=== PATIENT | female | born 1970 | race Caucasian/White ===

== ENCOUNTER 2017-04-09 13:19 | Emergency (ER) | payer OTHER ==
[2017-04-09] MEDS ORDERED: OXYCODONE/APAP 5/325 TAB PO ONE (14:12)
--- NOTE | 2017-04-09 14:12 | EDPHY ---
H & P Stated Complaint: TRIPPED AND FELL ONTO RIGHT WRIST Source: Patient Exam Limitations: No limitations - Personal History LMP (Females 10-55): 1-7 Days Ago Current Tetanus/Diphtheria Vaccine: Yes Current Tetanus Diphtheria and Acellular Pertussis (TDAP): Yes - Medical/Surgical History Hx Asthma: No Hx Chronic Respiratory Disease: No Hx Diabetes: No Hx Cardiac Disease: No Hx Renal Disease: No Hx Cirrhosis: No Hx Alcoholism: No Hx HIV/AIDS: No Hx Splenectomy or Spleen Trauma: No Other PMH: DENIES - Social History Smoking Status: Never smoked HPI/ROS: CHIEF COMPLAINT: fall, wrist pain HISTORY OF PRESENT ILLNESS: Patient was walking in her office this afternoon when she tripped and fell. She landed on outward stretch right arm against a wall. Sudden onset of pain in the right hand, fingers and wrist. Moderate to severe pain. Worse with palpation weight-bearing. No radiating pain unless you press her right forearm. No numbness or tingling. No lacerations. No injury to anywhere else on her person. No head strike or loss of conscious. No other associated complaints or modifying factors. No use of anticoagulants. PRIOR ORTHO INJURIES: None ESTABLISHED ORTHOPEDIST: None REVIEW OF SYSTEMS: Ten systems reviewed and are negative unless otherwise noted in the HPI EXAMINATION General Appearance: Alert, no distress Cardiovascular: Pulses normal throughout. Symmetric radial pulses 2+ Brisk cap refill Neurological: A&O, sensory symmetric, strength symmetric. Good strength of the interossei. Normal 2 point sensation. No wrist drop Skin: Warm and dry, no rash. No lacerations, abrasions, contusions, or ecchymosis. Extremities: Moderate tenderness in the right carpals, metacarpals, index, middle and ring fingers. No snuffbox point tenderness. There is no crepitus or deformity. Range of motion is intact but painful with flexion extension. Neurovascular intact distal to the injury Psychiatric: Mood and affect normal DIFFERENTIAL DIAGNOSES: Including but not limited to wrist sprain, wrist fracture, metacarpal fracture, IP sprain, finger fracture, contusion MDM: 2:05 p.m. Acute right wrist pain status post mechanical fall. Pain is in the wrist and metacarpals. Also involving 3 of the 5 fingers. She is neurovascular intact. X-rays have been ordered. Percocet has been ordered. 2:22 p.m. X-ray as interpreted by me without the aid of the radiologist reveals a distal radius fracture. This in compression with minimal displacement of the anterior portion. No angulation. Proceed with splint placement 2:35 p.m. X-ray is read as distal radius fracture as well as a fracture at the base of the right middle finger proximal phalanx. Splint has been applied at this time. She will be referred to hand surgeon for definitive care. Return to ER precautions discussed. She is comfortable this plan. She will be discharged home stable condition, neurovascular intact ED Precautions: Worsening pain. Erythema, edema, cyanosis, pallor, paresthesia or anesthesia. SUPERVISION: This patient was independently evaluated without direct examination by the attending physician. Case was discussed with attending physician. (Roberth Valladares) Constitutional: Initial Vital Signs Temperature (C) 37.1 C 04/09/17 13:35 Heart Rate 70 04/09/17 13:35 Respiratory Rate 15 04/09/17 13:35 Blood Pressure 132/77 H 04/09/17 13:35 O2 Sat (%) 96 04/09/17 13:35 O2 Delivery Mode Room Air Allergies/Adverse Reactions: Penicillins Allergy (Severe, Verified 09/04/12 11:59) Anaphylaxis Sulfa (Sulfonamide Antibiotics) [Sulfa(Sulfonamide Antibiotics)] Allergy (Mild, Verified 09/04/12 11:59) GI upset Home Medications: Medication Instructions Recorded Docusate Sodium [Colace 100 MG 100 mg PO AD PRN 09/04/12 (OTC)] Glycerin [Glycerin Adult Supp 1 each CA AD PRN 09/04/12 (OTC)] oxyCODONE HCL/ACETAMINOPHEN 1 each PO Q4-6PRN PRN #19 tablet 04/09/17 [Percocet 5-325 mg Tablet] Medical Decision Making - Diagnostics Imaging Results: Imaging Impressions Hand X-Ray 04/09/17 13:50 Impression: Acute fractures involving the distal radius and the base of the third digit proximal phalanx. PORTABLE RIGHT WRIST (4 Views, at 2:06 PM): Again noted is the distal radial fracture with intra-articular extension and impaction. The navicular is intact. The intercarpal alignments are maintained. There is negative ulnar variance. The fractures involving the base of the third digit proximal phalanx are also seen along the cephalad margin of the images. Impression: Acute intra-articular fracture of the distal radius with negative ulnar variance, and fractures involving the base of the third digit proximal phalanx. Wrist X-Ray 04/09/17 13:50 Impression: Acute fractures involving the distal radius and the base of the third digit proximal phalanx. PORTABLE RIGHT WRIST (4 Views, at 2:06 PM): Again noted is the distal radial fracture with intra-articular extension and impaction. The navicular is intact. The intercarpal alignments are maintained. There is negative ulnar variance. The fractures involving the base of the third digit proximal phalanx are also seen along the cephalad margin of the images. Impression: Acute intra-articular fracture of the distal radius with negative ulnar variance, and fractures involving the base of the third digit proximal phalanx. ED Course/Re-evaluation: The patient was evaluated and managed by the physician secretary administrative assistant. I have reviewed this chart and I agree with the findings and plan of care as documented , as indicated by my signature. I am the secondary supervising physician. ( Alethea Allison) - Data Points Medications Given: Discontinued Medications Oxycodone/Acetaminophen (Percocet 5/325) 1 tab PO EDNOW ONE Stop: 04/09/17 14:13 Last Admin: 04/09/17 14:16 Dose: 1 tab Departure - Departure Disposition: Home, Routine, Self-Care Clinical Impression: Sprain, IP, hand, right Right wrist sprain Qualifiers: Encounter type: initial encounter Qualified Code(s): S63.501A - Unspecified sprain of right wrist, initial encounter Sprain of hand, right Qualifiers: Encounter type: initial encounter Qualified Code(s): S63.91XA - Sprain of unspecified part of right wrist and hand, initial encounter Distal radial fracture Qualifiers: Encounter type: initial encounter Fracture type: closed Fracture morphology: unspecified fracture morphology Laterality: right Qualified Code(s): S52.501A - Unspecified fracture of the lower end of right radius, initial encounter for closed fracture Fracture of proximal phalanx of right middle finger Qualifiers: Encounter type: initial encounter Fracture type: closed Fracture alignment: nondisplaced Qualified Code(s): S62.642A - Nondisplaced fracture of proximal phalanx of right middle finger, initial encounter for closed fracture Condition: Good Instructions: Hand Sprain (ED), Wrist Sprain (ED) Additional Instructions: 1. Nonweightbearing on the right upper extremity until seen by hand surgeon for definitive care 2. Keep her splint in place at all times 3. Return to ER for worsening pain, numbness, tingling Referrals: NONE *PRIMARY CARE P,. [Primary Care Provider] - As per Instructions Harley Courtney MD [Medical Doctor] - As per Instructions Prescriptions: oxyCODONE HCL/ACETAMINOPHEN [Percocet 5-325 mg Tablet] 1 each PO Q4-6PRN PRN # 19 tablet PRN Reason: Pain, Breakthrough
[2017-04-09 15:14] VITALS: BP 113/63; PULSE 71; RESP 14; TEMP 98.4; O2SAT 95
== END 2017-04-09 15:10 | disposition home or self-care (01) ==
DX: S62.642A Nondisplaced fracture of proximal phalanx of right middle finger, initial encounter for closed fracture (principal); S52.501A Unspecified fracture of the lower end of right radius, initial encounter for closed fracture; S63.501A Unspecified sprain of right wrist, initial encounter; S63.638A Sprain of interphalangeal joint of other finger, initial encounter; W01.0XXA Fall on same level from slipping, tripping and stumbling without subsequent striking against object, initial encounter; Y92.69 Other specified industrial and construction area as the place of occurrence of the external cause; Y99.0 Civilian activity done for income or pay; Y93.01 Activity, walking, marching and hiking